=== PATIENT | female | born 1960 | race Caucasian/White ===

== ENCOUNTER → 2016-12-11 17:13 | Outpatient (CLI) | payer MEDICARE, BC ==
[~2016-12-11 17:13] MED LIST: CALCIUM 250+D T1 TAB PO; MAG-OX 400 MG400 MG PO; MANGANESE; POTASSIUM99 M1 PO; PROBIOTIC1 EAC1 PO; ULTRAM50 MG PO; VITAMIN C250 MG PO; [UNRECOGNIZED DRUG - OTHER]
[2016-12-24 10:52] VITALS: BMI 28.7
== END | disposition home or self-care (01) ==
LOC: D.LABREF 17:13
DX: R31.9 Hematuria, unspecified (principal)

== ENCOUNTER 2016-12-24 09:18 | Day surgery (SDC) | payer MEDICARE, MEDICAID ==
[~2016-12-24] VITALS: Ht 162.6 cm; Wt 75.8 kg
[2016-12-24 10:11] LABS: HEMOGLOBIN 13.7 g/dL (12-16); MCH 29.6 pg (26.0-34.0); MCHC 33.4 g/dL (31.0-37.0); MCV 88.6 fL (80.0-100.0); MEAN PLATELET VOLUME 10.2 fL (7.4-10.4); RBC 4.63 10x6/uL (4.00-5.40); RDW 13.2 % (11.5-14.5); WBC 5.9 10x3/uL (4.8-10.8)
[2016-12-24] MEDS ORDERED: POTASSIUM99 M1 PO (10:19)
[2016-12-24] MEDS ORDERED: PROBIOTIC1 EAC1 PO (10:19)
[2016-12-24] MEDS ORDERED: [UNRECOGNIZED DRUG - OTHER] (10:20)
[2016-12-24] MEDS ORDERED: MAG-OX 400 MG400 MG PO (10:20)
[2016-12-24] MEDS ORDERED: CALCIUM 250+D T1 TAB PO (10:21)
[2016-12-24] MEDS ORDERED: ULTRAM50 MG PO (10:21)
[2016-12-24] MEDS ORDERED: VITAMIN C250 MG PO (10:21)
[2016-12-24] MEDS ORDERED: MANGANESE (10:21)
[2016-12-24 10:52] VITALS: BP 124/85; Ht 162.6 cm; Wt 75.8 kg
--- NOTE | 2016-12-24 13:50 | NUR ---
PT REC'D TO ROOM VIA STRETCHER. AWAKE, ALERT, ORIENTED. C/O URGE TO VOID. PER DR. HANSON HAS TO RETAIN RIMSO FOR 10 MINUTES. PT AWARE. WATER REQUESTED AND PROVIDED.
--- NOTE | 2016-12-24 14:05 | NUR ---
PT UP TO BR TO VOID. FULL LIQ DIET PROVIDED.
--- NOTE | 2016-12-24 14:31 | NUR ---
IV D/C'D CATH INTACT. PT VOIDED AGAIN WITH NO DIFFICULTY.
--- NOTE | 2016-12-24 14:44 | NUR ---
D/C INSTRUCTIONS EXPLAINED TO PT. VOICED UNDERSTANDING. COPIES OF ALL GIVEN TO PT. D/C'D HOME VIA W/C TO PRIVATE CAR.
--- NOTE | 2016-12-24 17:05 | OP ---
PATIENT NAME: ASHUTOSH HANKS MEDICAL RECORD: [id number] :58 LOCATION:[facility] ADMISSION DATE: SURGEON: PRIYANK HANSON MD DATE OF OPERATION: 12/24/2016 SURGEON: Priyank Hanson MD ANESTHESIA: MAC by Carmen Dye CRNA. PREOPERATIVE DIAGNOSES: Microhematuria, interstitial cystitis. PROCEDURES: Cystoscopy, intravesical Rimso-50 instillation times 50 mL. FINDINGS: On cystoscopy, single ureteral orifices bilaterally, no bladder tumors. Bladder inflammation in the trigone area and dome of the bladder. SPECIMENS: None. COMPLICATIONS: None. ESTIMATED BLOOD LOSS: None. CLINICAL HISTORY: This is a 56-year-old female, who has had several months of microhematuria as well as symptoms of pelvic pain, urinary frequency and dyspareunia. She has never smoked. The pains are in the suprapubic area and radiates to the back and flank. There is also pain with sex. She had a CT scan of the abdomen and pelvis, which showed no kidney stones or hydronephrosis and no renal masses. Bladder contour was normal. She also had urinalysis, which showed red blood cells, but no white blood cells. Urine cytology showed no tumor cells. She comes today to have cystoscopy. If we find no evidence of bladder tumors, but inflammation of the bladder, then we will treat her with intravesical Rimso. Rimso is an anti-inflammatory medication for interstitial cystitis treatment. SHE IS ALLERGIC TO LATEX, IODINE, SULFA, HYDROCODONE, DICLOFENAC AND NEURONTIN. 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 She was prepped with castile soap. We used a latex-free environment. DESCRIPTION OF PROCEDURE: The patient was given IV sedation. She was then placed into dorsal lithotomy position and prepped and draped. A 17-Cameroonian cystoscope was used for visualization. Findings are as outlined above. The bladder was then emptied through the cystoscope sheath. The scope was removed. A 14-Cameroonian Hernandez catheter was inserted into the bladder and the intravesical Rimso solution was injected into the bladder using a 60-cc catheter-tip syringe. The medication was left in the bladder and the catheter was withdrawn. The patient will hold the medication in for a period of 15 minutes. After that time, she will void it out. I will see her in the office next week to have the second Rimso instillation performed. TRANSINT:[id number] Voice Confirmation ID: [id number] DOCUMENT ID: [id number] OPERATIVE REPORT [id number] ASHUTOSH HANKS ROBERT S MD at 1705 CC: [id number] DICTATION DATE: 12/24/16 1347 PRODUCTION SUPPORT SPECIALIST: 12/24/16 1513 [facility] 12/24/16 [place] [id number]
== END 2016-12-24 14:48 | disposition home or self-care (01) ==
LOC: D.OPS 09:18 → D.PAN 12:00 → D.OPS 14:48
PROVIDERS: Anesthesiology
DX: R31.29 Other microscopic hematuria (principal); N30.11 Interstitial cystitis (chronic) with hematuria; K21.9 Gastro-esophageal reflux disease without esophagitis; Z01.812 Encounter for preprocedural laboratory examination

== ENCOUNTER → 2017-02-24 17:58 | Outpatient (CLI) | payer MEDICARE ==
[2016-12-24 10:52] VITALS: BMI 28.7
== END | disposition home or self-care (01) ==
LOC: D.LABREF 17:58
DX: N39.0 Urinary tract infection, site not specified (principal)

== ENCOUNTER 2018-05-11 13:00 | Outpatient (CLI) | payer OTHER ==
[2016-12-24 10:52] VITALS: BMI 28.7
== END 2018-05-11 14:00 | disposition home or self-care (01) ==
LOC: D.MAMMO 13:00
PROVIDERS: ATTEND Nurse Practitioner Family
DX: Z12.31 Encounter for screening mammogram for malignant neoplasm of breast (principal)

== ENCOUNTER → 2019-04-02 10:08 | Outpatient (CLI) | payer OTHER ==
[2016-12-24 10:52] VITALS: BMI 28.7
== END | disposition home or self-care (01) ==
LOC: D.RAD 10:08
PROVIDERS: ATTEND Nurse Practitioner Family
DX: M54.5 Low back pain (principal)